=== PATIENT | female | born 1995 | race Two or more races ===

== ENCOUNTER 2024-08-24 00:57 | Emergency (ER) | payer SELFPAY ==
[2024-08-24 01:23] LABS: BASOPHILS ABSOLUTE AUTO 0.08 K/uL (0.00-0.20); BASOPHILS PERCENT AUTO 0.6 % (0.0-1.0); EOSINOPHILS ABSOLUTE AUTO 0.38 K/uL (0.00-0.45); EOSINOPHILS PERCENT AUTO 3.1 % (0.0-6.0); HEMATOCRIT 40.6 % (37.0-47.0); HEMOGLOBIN 13.3 g/dL (12.0-16.0); IMMATURE GRAN ABSOLUTE AUTO 0.06 K/uL (0.00-0.05); IMMATURE GRAN PERCENT AUTO 0.5 % (0.0-0.4); LYMPHOCYTES ABSOLUTE AUTO 4.94 K/uL (1.00-4.80); LYMPHOCYTES PERCENT AUTO 39.8 % (24.0-44.0); MEAN CORPUSCULAR HEMOGLOBIN 24.2 pg (28.0-32.0); MEAN CORPUSCULAR HGB CONC 32.8 g/dL (32.0-36.0); MEAN PLATELET VOLUME 9.2 fL (9.4-12.3); MONOCYTES ABSOLUTE AUTO 0.54 K/uL (0.00-0.80); MONOCYTES PERCENT AUTO 4.4 % (0.0-8.0); NEUTROPHILS PERCENT AUTO 51.6 % (41.0-71.0); PLATELET COUNT,PLT 454 K/uL (150-400); RED BLOOD CELL COUNT 5.49 M/uL (4.10-5.30)
[2024-08-24] MEDS ORDERED: Sodium Chloride 0.9% 20 ML SDV IV PRN (01:35)
[2024-08-24] MEDS ORDERED: Sodium Chloride 0.9% 2.5 ML Syringe FLUSH PRN (01:35)
[2024-08-24] MEDS ORDERED: Sodium Chloride 0.9% 10 ML Syringe FLUSH PRN (01:35)
[2024-08-24 01:49] LABS: A/G RATIO 0.9 (0.9-1.6); BILIRUBIN TOTAL 0.6 mg/dL (0.2-1.0); CALCIUM 8.9 mg/dL (8.5-10.1); CARBON DIOXIDE,CO2 24.4 mmol/L (21.0-32.0); CREATININE 0.8 mg/dL (0.6-1.0); EST CRCL DRUG DOSING (CG) 80.9 mL/min; POTASSIUM,K 3.5 mmol/L (3.5-5.1); PROTEIN TOTAL,TP 8.7 g/dL (6.4-8.2)
[2024-08-24] MEDS: Iopamidol 755 MG/ML 500 ML Multipack Bottle IVPUSH ONE (02:05)
[2024-08-24] MEDS: Sodium Chloride 0.9% 1,000 ML IV ONE ×2 (02:30→06:04)
[2024-08-24] MEDS: hydrALAZINE 20 MG/ML SDV IVPUSH ONE (02:30)
[2024-08-24] MEDS ORDERED: Glucagon,Human Recombinant 1 MG Vial IM PRN (05:36)
[2024-08-24] MEDS ORDERED: 50% Dextrose in Water 50 ML Syringe IVPUSH PRN (05:36)
[2024-08-24] MEDS: Insulin Regular, Human 100 Units/ML 10 ML Vial IVPUSH ONE (06:13)
== END 2024-08-24 07:34 | disposition home or self-care (01) ==
LOC: MW.ED 00:57 → EDBD 00:57 → MW.ED 07:34
DX: R04.2 Hemoptysis (principal); E11.65 Type 2 diabetes mellitus with hyperglycemia; R07.9 Chest pain, unspecified; Z79.899 Other long term (current) drug therapy; Z79.84 Long term (current) use of oral hypoglycemic drugs
CPT/HCPCS: 36415; 71275; 80053; 82947; 83690; 84484; 84703; 85025; 93005; 96361; 96374; 99285; J0360; J1815; J7030; Q9967